=== PATIENT | male | born 1960 | race Two or more races ===

== ENCOUNTER 2022-11-18 13:46 | Emergency (ER) | payer OTHER ==
[~2022-11-18] VITALS: Ht 172.7 cm; Wt 86.2 kg
[2022-11-18] MEDS ORDERED: VENLAFAXINE HCL50 MG (14:20)
[2022-11-18] MEDS ORDERED: TAMS0.4C PO (14:22)
[2022-11-18] MEDS ORDERED: CLONAZEPAM2 MG PO (14:22)
[2022-11-18] MEDS ORDERED: CATAFLAN (14:23)
== END 2022-11-18 18:49 | disposition home or self-care (01) ==
LOC: ER 13:46
DX: M25.552 Pain in left hip (principal); Z87.39 Personal history of other diseases of the musculoskeletal system and connective tissue; M19.90 Unspecified osteoarthritis, unspecified site

== ENCOUNTER 2023-01-10 21:20 | Emergency (ER) | payer OTHER ==
[~2023-01-10] VITALS: Ht 172.7 cm; Wt 88.5 kg
[~2023-01-10 21:20] MED LIST: CATAFLAN; CLONAZEPAM2 MG PO; TAMS0.4C PO; VENLAFAXINE HCL50 MG
== END 2023-01-11 03:23 ==
LOC: ER 21:20
DX: K92.1 Melena (principal); R19.7 Diarrhea, unspecified